=== PATIENT | female | born 1965 | race Caucasian/White ===

== ENCOUNTER 2016-09-21 14:44 | Emergency (ER) | payer MEDICAID ==
[2016-09-21 14:47] VITALS: BP 139/95
== END 2016-09-21 15:40 | disposition home or self-care (01) ==
LOC: ED 14:44
DX: S90.32XA Contusion of left foot, initial encounter (principal); I10 Essential (primary) hypertension; E11.65 Type 2 diabetes mellitus with hyperglycemia; W20.8XXA Other cause of strike by thrown, projected or falling object, initial encounter; Y93.89 Activity, other specified; Y99.8 Other external cause status; Y92.89 Other specified places as the place of occurrence of the external cause